=== PATIENT | female | born 1975 | race Caucasian/White ===

== ENCOUNTER → 2025-04-24 13:17 | Outpatient (REF) | payer OTHER, SELFPAY | LOC: RAD 13:17 | PROVIDERS: ATTENDING PHYSICIAN Family Medicine Geriatric Medicine | DX: N83.209 Unspecified ovarian cyst, unspecified side (principal) | CPT/HCPCS: 76830; 76856 ==

== ENCOUNTER → 2025-05-21 18:01 | Outpatient (REF) | payer OTHER, SELFPAY | LOC: WDC 18:01 | PROVIDERS: ATTENDING PHYSICIAN Family Medicine Geriatric Medicine | DX: Z12.31 Encounter for screening mammogram for malignant neoplasm of breast (principal) | CPT/HCPCS: 77063; 77067 ==

== ENCOUNTER 2025-09-03 07:41 | Day surgery (SDC) | payer OTHER, SELFPAY | END 2025-09-03 10:44 | disposition home or self-care (01) | LOC: GI 07:41 | PROVIDERS: ATTENDING PHYSICIAN Internal Medicine Gastroenterology | DX: Z12.11 Encounter for screening for malignant neoplasm of colon (principal); K64.8 Other hemorrhoids | CPT/HCPCS: G0121 ==

== ENCOUNTER 2025-11-06 05:47 | Day surgery (SDC) | payer BC, SELFPAY ==
[2025-10-31 09:10] LABS: Hematocrit 42.0 % (37.0-47.0); Hemoglobin 14.2 g/dL (12.0-16.0); Mean Corp Hgb Conc. 33.8 g/dL (33.0-37.0); Mean Corpuscular Volume 87.9 fL (81.0-99.0); Platelet Count 279 10^3/uL (130-400); Red Cell Dist. Width 13.2 % (11.5-14.5)
[2025-10-31 10:21] LABS: Blood Urea Nitrogen 10 mg/dl (7-17); Calcium 9.5 mg/dl (8.4-10.2); Carbon Dioxide 26 mmol/L (22-30); Chloride 106 mmol/L (98-107); Glucose 79 mg/dl (70-99); Potassium 4.3 mmol/L (3.5-5.1); Sodium 138 mmol/L (135-145); eGFR > 60.00
[2025-10-31 13:47] VITALS: BMI 26.2
[2025-11-06] VITALS (11 sets, daily range): BP systolic 102–122; BP diastolic 47–69; BMI 26.2
[2025-11-06] MEDS: NORMOSOL-R/PLASMALYTE-A 1000 IV (06:41)
[2025-11-06] MEDS: DILAUDID 0.25 MG IV ×4 (09:38→10:23)
[2025-11-06] MEDS: ROXICODONE 5 MG PO ×2 (11:52→12:49)
[2025-11-06] MEDS: ZOFRAN 4 MG IV (12:01)
== END 2025-11-06 13:15 | disposition home or self-care (01) ==
LOC: SDS 05:47
PROVIDERS: ATTENDING PHYSICIAN Obstetrics & Gynecology; FAMILY PHYSICIAN Family Medicine Geriatric Medicine
DX: N81.2 Incomplete uterovaginal prolapse (principal); N39.3 Stress incontinence (female) (male); N80.03 Adenomyosis of the uterus
CPT/HCPCS: 57425; 58542; 57260; 80048; 85027; 86850; 86900; 86901; 88305; 93005; C1763